=== PATIENT | female | born 1955 | race Caucasian/White ===

== ENCOUNTER 2021-12-05 10:48 | Emergency (ER) | payer MEDICARE, OTHER ==
[~2021-12-05] VITALS: Ht 154.9 cm; Wt 57.2 kg
[~2021-12-05 10:48] MED LIST: ATELVIA; CETIRIZINE HCL10 MG PO; CIPRODEX OTIC7.5 ML; CIPROFLOXACIN500 MG PO; COLACE100 MG PO; DOXEPIN; DOXYCYCLINE; DULERA; DULERA 200 MCG/13 GM INH; GABAPENTIN100 MG PO; GEMFIBROZIL; GLIMEPIRIDE; GLIPIZIDE5 MG PO; JANUVIA100 MG PO; LISINOPRIL; LISINOPRIL10 MG PO; LRT10 PO; METAXALONE; METFORMIN; METOPROLOL; MUCDM PO; NAPROXEN PO; NFD30TCR PO; NORCO 5-325 TA1 EACH; PEPCID20 MG PO; PRAVASTATIN SOD10 MG PO; PREDNISONE20 MG PO; PROVENTIL; PROVENTIL HFA6.7 GM INH; SYMBICORT 16010.2 GM INH; TAPAZOLE5 MG PO; TESSALON PERLE100 MG PO; TRAMADOL HCL E100 MG PO; TRAZODONE HCL50 MG PO; ZOLPIDEM PO; [UNRECOGNIZED DRUG - REMARK]
[2021-12-05] MEDS ORDERED: CYCLOBENZAPRINE5 MG PO (11:22)
[2021-12-05] MEDS ORDERED: ACETAMINOPHEN-1 EAC4 PO (11:22)
== END 2021-12-05 11:38 | disposition home or self-care (01) ==
LOC: ER 10:58
DX: M54.31 Sciatica, right side (principal); E11.22 Type 2 diabetes mellitus with diabetic chronic kidney disease; I12.0 Hypertensive chronic kidney disease with stage 5 chronic kidney disease or end stage renal disease; N18.6 End stage renal disease; Z88.0 Allergy status to penicillin; Z88.2 Allergy status to sulfonamides; Z88.8 Allergy status to other drugs, medicaments and biological substances; Z79.899 Other long term (current) drug therapy
CPT/HCPCS: 99282

== ENCOUNTER 2024-10-03 22:56 | Inpatient (IN) | payer MEDICARE, OTHER ==
[~2024-10-03] VITALS: Ht 154.9 cm; Wt 57.2 kg
[~2024-10-03 22:56] MED LIST changes: +ACETAMINOPHEN-1 EAC4 PO; +CYCLOBENZAPRINE5 MG PO
[2024-10-03 23:14] VITALS: TEMP 98
[2024-10-03] MEDS: METHYLPREDNISOLONE SOD SUCC 125 MG/2ML VIAL IV ONE (23:24)
[2024-10-03 23:33] VITALS: PULSE 100; RESP 20; O2SAT 100
[2024-10-03] MEDS: ALBUTEROL/IPRATROPIUM 3 ML NEB NEB ONE (23:33)
[2024-10-03 23:41] LABS: BASOPHILS # (AUTO) 0.1 (0.0-0.1); BASOPHILS % 0.6 % (0.0-1.0); EOSINOPHILS # (AUTO) 0.2 (0.0-0.4); EOSINOPHILS % 1.4 % (0.0-6.0); HEMATOCRIT 45.7 % (34.2-44.1); HEMOGLOBIN 14.7 g/dL (12.0-16.0); LYMPHOCYTES # (AUTO) 5.4 (1.0-3.2); LYMPHOCYTES % 43.2 % (18.0-39.1); MEAN CORPUSCULAR HEMOGLOBIN 27.4 pg (28-32); MEAN CORPUSCULAR HGB CONC 32.2 g/dL (31-35); MEAN CORPUSCULAR VOLUME 85.3 fL (81-99); MONOCYTES # (AUTO) 1.2 (0.2-0.8); MONOCYTES % 9.5 % (4.4-11.3); NEUTROPHILS # (AUTO) 5.6 (2.1-6.9); PLATELET COUNT 275 x10e3/uL (140-360); RED BLOOD COUNT 5.36 x10e6/uL (3.6-5.1); RED CELL DISTRIBUTION WIDTH 15.3 % (11.7-14.4); WHITE BLOOD COUNT 12.45 x10e3/uL (4.8-10.8)
[2024-10-03 23:50] LABS: ALBUMIN 3.7 g/dL (3.5-5.0); ALBUMIN/GLOBULIN RATIO 0.8 (0.8-2.0); ANION GAP 17.6 mmol/L (8-16); BILIRUBIN,TOTAL 0.6 mg/dL (0.2-1.2); CALCIUM 9.3 mg/dL (8.4-10.2); CREATININE, SERUM 1.7 mg/dL (0.57-1.11); POTASSIUM 3.6 mmol/L (3.5-5.1); TOTAL PROTEIN 8.1 g/dL (6.5-8.1)
[2024-10-03 23:54] LABS: CORONAVIRUS COVID-19 AG NEGATIVE (NEGATIVE); INFLUENZA A AG NEGATIVE (NEGATIVE); INFLUENZA B AG NEGATIVE (NEGATIVE)
[2024-10-04] VITALS (14 sets, daily range): BP systolic 98–153; BP diastolic 56–93; PULSE 86–111; RESP 16–22; TEMP 97–98.3; O2SAT 94–100
[2024-10-04] MEDS ORDERED: DEXTROSE 50% SYRINGE 50 ML IV PRN (01:30)
[2024-10-04] MEDS: CEFTRIAXONE 2 GM in SODIUM CHLORIDE 0.9% 100 ML IV SCH (02:04)
[2024-10-04] MEDS ORDERED: SODIUM CHLORIDE 0.9% 0 ML ONE (02:06)
[2024-10-04] MEDS ORDERED: Azithromycin IV 500 MG 10 ML VIAL ONE (02:06)
[2024-10-04] MEDS: ALBUTEROL/IPRATROPIUM 3 ML NEB NEB SCH (02:42)
[2024-10-04] MEDS ORDERED: METOPROLOL TART50 MG PO (05:32)
[2024-10-04] MEDS: METHYLPREDNISOLONE SOD SUCC 40 MG/ML VIAL 1ML IV SCH ×2 (05:56→21:10)
[2024-10-04] MEDS ORDERED: METFORMIN HCL500 MG PO (06:19)
[2024-10-04 07:01] LABS: CREATINE KINASE 51 IU/L (29-168)
[2024-10-04 07:09] LABS: TROPONIN I < 0.001 ng/mL (0-0.300)
[2024-10-04] MEDS: INSULIN REGULAR, HUMAN 100 UNIT/1 ML SQ SCH (08:13)
[2024-10-04] MEDS ORDERED: HYDRALAZINE HCL 20 MG/ML VIAL IV PRN (10:15)
[2024-10-04] MEDS ORDERED: TRAMADOL HCL 50 MG TAB PO PRN (10:15)
[2024-10-04] MEDS ORDERED: ONDANSETRON HCL INJ 2MG/ML 2ML 2 MG/ML VIAL IV PRN (10:15)
[2024-10-04] MEDS: METOPROLOL TARTRATE 50 MG TAB PO SCH (11:56)
[2024-10-04] MEDS: FUROSEMIDE INJ 10 MG/ML 4 ML VIAL IV ONE (11:56)
[2024-10-04] MEDS: MULTIVITAMINS/MINERALS TAB PO SCH (11:56)
[2024-10-04] MEDS: GABAPENTIN 100 MG CAP PO SCH (11:57)
[2024-10-04] MEDS: LISINOPRIL 10 MG TAB PO SCH (11:57)
[2024-10-04] MEDS: IPRATROPIUM BROMIDE 0.02% 2.5 ML NEB NEB SCH (12:34)
[2024-10-04 17:21] LABS: TROPONIN I 0.016 ng/mL (0-0.300)
[2024-10-04] MEDS: ENOXAPARIN 30 MG/0.3 ML SYR SC SCH (17:21)
[2024-10-04] MEDS: DOCUSATE SODIUM 100 MG CAP PO SCH (17:21)
[2024-10-04] MEDS: TRAZODONE HCL 50 MG TAB PO SCH (21:10)
[2024-10-04] MEDS: GUAIFENESIN/DEXTROMETHORPHAN LIQD 5 ML UDC PO PRN (21:10)
[2024-10-05] VITALS (11 sets, daily range): BP systolic 90–118; BP diastolic 49–71; PULSE 50–101; RESP 17–20; TEMP 97.4–98.9; O2SAT 93–99
[2024-10-05 06:04] LABS: BASOPHILS # (AUTO) 0.1 (0.0-0.1); BASOPHILS % 0.5 % (0.0-1.0); EOSINOPHILS % 0.1 % (0.0-6.0); HEMATOCRIT 37.5 % (34.2-44.1); HEMOGLOBIN 12.1 g/dL (12.0-16.0); LYMPHOCYTES # (AUTO) 1.7 (1.0-3.2); LYMPHOCYTES % 8.8 % (18.0-39.1); MEAN CORPUSCULAR HEMOGLOBIN 27.8 pg (28-32); MEAN CORPUSCULAR HGB CONC 32.3 g/dL (31-35); MEAN CORPUSCULAR VOLUME 86.2 fL (81-99); MONOCYTES # (AUTO) 0.6 (0.2-0.8); MONOCYTES % 3.3 % (4.4-11.3); NEUTROPHILS # (AUTO) 16.5 (2.1-6.9); NEUTROPHILS % 86.8 % (38.7-80.0); PLATELET COUNT 209 x10e3/uL (140-360); RED BLOOD COUNT 4.35 x10e6/uL (3.6-5.1); RED CELL DISTRIBUTION WIDTH 15.2 % (11.7-14.4); WHITE BLOOD COUNT 18.98 x10e3/uL (4.8-10.8)
[2024-10-05 06:35] LABS: ANION GAP 15.5 mmol/L (8-16); CALCIUM 8.6 mg/dL (8.4-10.2); CREATININE, SERUM 1.97 mg/dL (0.57-1.11); POTASSIUM 4.5 mmol/L (3.5-5.1)
[2024-10-05] MEDS: POLYETHYLENE GLYCOL 3350 17 GM PACK PO PRN (15:10)
[2024-10-06] VITALS (10 sets, daily range): BP systolic 95–139; BP diastolic 62–84; PULSE 73–85; RESP 16–20; TEMP 97.5–98.1; O2SAT 90–100
[2024-10-06 05:30] LABS: BASOPHILS # (AUTO) 0.1 (0.0-0.1); BASOPHILS % 0.3 % (0.0-1.0); EOSINOPHILS % 0.1 % (0.0-6.0); HEMATOCRIT 37.4 % (34.2-44.1); HEMOGLOBIN 11.9 g/dL (12.0-16.0); LYMPHOCYTES # (AUTO) 1.6 (1.0-3.2); LYMPHOCYTES % 10.1 % (18.0-39.1); MEAN CORPUSCULAR HEMOGLOBIN 27.8 pg (28-32); MEAN CORPUSCULAR HGB CONC 31.8 g/dL (31-35); MEAN CORPUSCULAR VOLUME 87.4 fL (81-99); MONOCYTES # (AUTO) 0.7 (0.2-0.8); MONOCYTES % 4.3 % (4.4-11.3); NEUTROPHILS # (AUTO) 13.4 (2.1-6.9); NEUTROPHILS % 84.8 % (38.7-80.0); PLATELET COUNT 207 x10e3/uL (140-360); RED BLOOD COUNT 4.28 x10e6/uL (3.6-5.1); RED CELL DISTRIBUTION WIDTH 15.4 % (11.7-14.4); WHITE BLOOD COUNT 15.72 x10e3/uL (4.8-10.8)
[2024-10-06 06:00] LABS: ALBUMIN 2.9 g/dL (3.5-5.0); ALBUMIN/GLOBULIN RATIO 0.8 (0.8-2.0); ANION GAP 14.1 mmol/L (8-16); BILIRUBIN,TOTAL 0.2 mg/dL (0.2-1.2); CALCIUM 8.2 mg/dL (8.4-10.2); CREATININE, SERUM 1.76 mg/dL (0.57-1.11); POTASSIUM 5.1 mmol/L (3.5-5.1); TOTAL PROTEIN 6.5 g/dL (6.5-8.1)
[2024-10-06] MEDS: MAGNESIUM HYDROXIDE 30 ML UDC PO ONE (11:51)
[2024-10-06] MEDS: METHYLPREDNISOLONE SOD SUCC 40 MG/ML VIAL 1ML IV SCH (11:52)
[2024-10-07] VITALS (13 sets, daily range): BP systolic 113–138; BP diastolic 74–95; PULSE 70–88; RESP 16–20; TEMP 97.3–98.6; O2SAT 92–100
[2024-10-07 06:39] LABS: BASOPHILS # (AUTO) 0.1 (0.0-0.1); BASOPHILS % 0.6 % (0.0-1.0); EOSINOPHILS # (AUTO) 0.1 (0.0-0.4); EOSINOPHILS % 0.4 % (0.0-6.0); HEMOGLOBIN 11.4 g/dL (12.0-16.0); LYMPHOCYTES # (AUTO) 4.6 (1.0-3.2); LYMPHOCYTES % 31.3 % (18.0-39.1); MEAN CORPUSCULAR HEMOGLOBIN 27.5 pg (28-32); MEAN CORPUSCULAR HGB CONC 31.7 g/dL (31-35); MEAN CORPUSCULAR VOLUME 86.7 fL (81-99); MONOCYTES # (AUTO) 1.7 (0.2-0.8); MONOCYTES % 11.6 % (4.4-11.3); NEUTROPHILS # (AUTO) 8.2 (2.1-6.9); NEUTROPHILS % 55.8 % (38.7-80.0); PLATELET COUNT 202 x10e3/uL (140-360); RED BLOOD COUNT 4.15 x10e6/uL (3.6-5.1); RED CELL DISTRIBUTION WIDTH 15.5 % (11.7-14.4); WHITE BLOOD COUNT 14.78 x10e3/uL (4.8-10.8)
[2024-10-07 06:55] LABS: ALBUMIN 2.8 g/dL (3.5-5.0); ALBUMIN/GLOBULIN RATIO 0.8 (0.8-2.0); ANION GAP 12.6 mmol/L (8-16); BILIRUBIN,TOTAL 0.3 mg/dL (0.2-1.2); CALCIUM 8.2 mg/dL (8.4-10.2); CREATININE, SERUM 1.74 mg/dL (0.57-1.11); POTASSIUM 4.6 mmol/L (3.5-5.1); TOTAL PROTEIN 6.3 g/dL (6.5-8.1)
[2024-10-08] VITALS (10 sets, daily range): BP systolic 113–160; BP diastolic 68–89; PULSE 65–85; RESP 18–20; TEMP 97.5–98.1; O2SAT 91–100
[2024-10-08] MEDS: PREDNISONE 10 MG TAB PO SCH (09:03)
[2024-10-09] VITALS (13 sets, daily range): BP systolic 110–151; BP diastolic 64–86; PULSE 65–81; RESP 18–23; TEMP 97.4–98.6; O2SAT 92–100
[2024-10-10] VITALS (10 sets, daily range): BP systolic 116–148; BP diastolic 69–82; PULSE 60–82; RESP 18–22; TEMP 97.5–98.1; O2SAT 94–100
[2024-10-11] VITALS (10 sets, daily range): BP systolic 121–167; BP diastolic 78–91; PULSE 66–83; RESP 15–22; TEMP 97.5–98.3; O2SAT 92–97
[2024-10-12] VITALS (12 sets, daily range): BP systolic 114–144; BP diastolic 71–84; PULSE 59–90; RESP 18–19; TEMP 97.6–98.5; O2SAT 92–100
[2024-10-12] MEDS: GUAIFENESIN/CODEINE 5 ML LIQD PO PRN (16:03)
[2024-10-12] MEDS ORDERED: SODIUM CHLORIDE 0.9% 250ML 0 ML ONE (22:34)
[2024-10-13] VITALS (10 sets, daily range): BP systolic 113–156; BP diastolic 67–104; PULSE 65–89; RESP 16–20; TEMP 97.4–99.1; O2SAT 92–100
[2024-10-13] MEDS: ALPRAZOLAM 0.25 MG TAB PO ONE (00:08)
[2024-10-13] MEDS: MELATONIN 3 MG TAB PO PRN (00:08)
[2024-10-13 09:56] LABS: ANION GAP 13.9 mmol/L (8-16); CALCIUM 9.2 mg/dL (8.4-10.2); CREATININE, SERUM 1.53 mg/dL (0.57-1.11); POTASSIUM 3.9 mmol/L (3.5-5.1)
[2024-10-14] VITALS (11 sets, daily range): BP systolic 113–152; BP diastolic 72–93; PULSE 62–81; RESP 17–20; TEMP 97.8–98.2; O2SAT 93–100
[2024-10-14] MEDS: PREDNISONE 10 MG TAB PO SCH (09:12)
[2024-10-15] VITALS (11 sets, daily range): BP systolic 130–162; BP diastolic 78–88; PULSE 65–91; RESP 18–20; TEMP 97.2–98.8; O2SAT 92–100
[2024-10-16] VITALS (10 sets, daily range): BP systolic 112–142; BP diastolic 65–88; PULSE 62–119; RESP 18–22; TEMP 97–98.2; O2SAT 94–99
[2024-10-17] VITALS (11 sets, daily range): BP systolic 110–149; BP diastolic 63–97; PULSE 59–88; RESP 1–20; TEMP 97.7–98.6; O2SAT 95–100
[2024-10-17] MEDS: ACETAMINOPHEN 325 MG TAB PO PRN (09:15)
[2024-10-18] VITALS (10 sets, daily range): BP systolic 110–146; BP diastolic 68–92; PULSE 76–88; RESP 16–20; TEMP 97.2–98.9; O2SAT 87–100
[2024-10-18] MEDS: ALBUTEROL SULF 0.083% NEB SOLN 3 ML NEB NEB PRN (14:25)
[2024-10-18] MEDS: INFLUENZA VIRUS VAC SPLIT INJ 0.5 ML SYR IM SCH (16:42)
[2024-10-19] VITALS (8 sets, daily range): BP systolic 99–108; BP diastolic 62–80; PULSE 82–118; RESP 16–19; TEMP 97.2–98.9; O2SAT 95–100
[2024-10-20] VITALS (7 sets, daily range): BP systolic 109–126; BP diastolic 54–85; PULSE 72–104; RESP 18–20; TEMP 98.1–98.7; O2SAT 92–99
[2024-10-20] MEDS ORDERED: GUAIFENESIN/CODEINE 5 ML LIQD PO PRN (09:15)
== END 2024-10-20 13:34 | DRG 190 ==
LOC: ER 23:00 → ERHOLD 10-04 01:19 → MED/SURG2 10-04 04:09
PROVIDERS: ADMIT Internal Medicine; ATTEND Internal Medicine
DX: J44.1 Chronic obstructive pulmonary disease with (acute) exacerbation (principal); J96.21 Acute and chronic respiratory failure with hypoxia; D69.3 Immune thrombocytopenic purpura; N17.9 Acute kidney failure, unspecified; Z59.01 Sheltered homelessness; Z99.81 Dependence on supplemental oxygen; E11.22 Type 2 diabetes mellitus with diabetic chronic kidney disease; I12.9 Hypertensive chronic kidney disease with stage 1 through stage 4 chronic kidney disease, or unspecified chronic kidney disease; E11.65 Type 2 diabetes mellitus with hyperglycemia; N18.9 Chronic kidney disease, unspecified; J44.89 Other specified chronic obstructive pulmonary disease; E03.9 Hypothyroidism, unspecified; R45.1 Restlessness and agitation; K59.00 Constipation, unspecified; Z11.52 Encounter for screening for COVID-19; Z63.8 Other specified problems related to primary support group; Z91.138 Patient's unintentional underdosing of medication regimen for other reason; Z79.51 Long term (current) use of inhaled steroids; Z79.52 Long term (current) use of systemic steroids; Z90.710 Acquired absence of both cervix and uterus; Z90.81 Acquired absence of spleen; Z88.0 Allergy status to penicillin; Z88.2 Allergy status to sulfonamides; Z88.6 Allergy status to analgesic agent; F17.200 Nicotine dependence, unspecified, uncomplicated
CPT/HCPCS: 36415; 71045; 74018; 80048; 80053; 82550; 82948; 83880; 84484; 85025; 93005; 93306; 94640; 94760; 94799; 96372; 99252; 99284; J0696; J1650; J1940; J2919; J7050; J7512